=== PATIENT | male | born 1995 | race American Indian/Alaskan Native ===

== ENCOUNTER 2021-06-09 07:04 | Outpatient (CLI) | payer OTHER ==
--- NOTE | 2021-06-09 11:01 | Magnetic Resonance Report ---
MRI LEFT KNEE WITHOUT CONTRAST INDICATION / CLINICAL INFORMATION: S80.01XS CONTUSION OF RIGHT KNEE SEQUELA, lateral knee pain since . TECHNIQUE: Multiplanar, multisequence MR images were obtained. No contrast used. COMPARISON: None available. FINDINGS: ACL: No significant abnormality. PCL: No significant abnormality. DISTAL QUADRICEPS TENDON: No significant abnormality. PATELLAR TENDON: No significant abnormality. MEDIAL MENISCUS: No significant abnormality. LATERAL MENISCUS: Complex bucket-handle tear of the posterior horn and posterior body lateral meniscu s with large flipped meniscal flap anteriorly positioned just posterior to the anterior horn lateral meniscus. MCL: No significant abnormality. LCL: No significant abnormality. DISTAL IT BAND: No significant abnormality. PATELLOFEMORAL ALIGNMENT: No significant abnormality. ARTICULAR CARTILAGE: No significant chondrosis or articular cartilage defect. JOINT SPACE: No significant joint effusion or synovitis. No significant popliteal cyst. No intra-radha cular bodies. BONES: No significant bone marrow edema. No fracture. No osseous lesion. SOFT TISSUES: No significant abnormality. ADDITIONAL FINDINGS: None. IMPRESSION: Complex bucket-handle tear of lateral meniscus. Report dictated by: Hector Omer MD Report dictated on: 06/09/2021 8:06 AM I have reviewed the images, agree with this report, and edited this report as needed. Signer Name: Andrey Cruz MD Signed: 06/09/2021 10:55 AM Workstation Name: [id number]
== END 2021-06-09 07:05 | disposition home or self-care (01) ==
LOC: MRI 07:04
PROVIDERS: ATTEND Orthopaedic Surgery
DX: S83.281A Other tear of lateral meniscus, current injury, right knee, initial encounter (principal); X58.XXXA Exposure to other specified factors, initial encounter; Y93.89 Activity, other specified; Y92.89 Other specified places as the place of occurrence of the external cause; Y99.8 Other external cause status
CPT/HCPCS: 73721